=== PATIENT | male | born 1955 | race Hispanic/Latino ===

== ENCOUNTER 2017-09-10 22:27 | Emergency (ER) | payer OTHER ==
[2017-09-10] MEDS ORDERED: TORADOL ONE (23:08)
[2017-09-10] MEDS ORDERED: TORADOL IM ONE (23:12)
[2017-09-11 00:06] LABS: Basophils % (Auto) 0.6 % (0.0-1.8); Eosinophils % (Auto) 1.6 % (0.0-4.3); Hematocrit 43.4 % (35.5-45.6); Hemoglobin 14.9 gm/dl (11.8-15.2); Mean Corpuscular HGB Conc 34 % (32-34); Mean Corpuscular Hemoglobin 32 pg (28-32); Mean Corpuscular Volume 93 fl (84-94); Platelet Count 197 K/mm3 (140-440); Red Blood Count 4.68 M/mm3 (3.65-5.03); Red Cell Distribution Width 13.3 % (13.2-15.2); White Blood Count 14.7 K/mm3 (4.5-11.0)
[2017-09-11 00:21] LABS: Alanine Aminotransferase 17 units/L (7-56); Albumin 4.3 g/dL (3.9-5); Albumin/Globulin Ratio 1.7 %; Alkaline Phosphatase 73 units/L (35-129); Anion Gap 21 mmol/L; BUN/Creatinine Ratio 13; Blood Urea Nitrogen 13 mg/dL (9-20); Calcium 9.9 mg/dL (8.4-10.2); Carbon Dioxide 23 mmol/L (22-30); Glucose 201 mg/dL (75-100); Lipase 27 units/L (13-60); Potassium 4.3 mmol/L (3.6-5.0); Sodium 138 mmol/L (137-145); Total Protein 6.8 g/dL (6.3-8.2)
[2017-09-11 02:38] LABS: Mucus,Urine 1+ /HPF
[2017-09-11 02:41] LABS: Bilirubin,Urine Negative (Negative); Ketones,Urine Negative (Negative)
[2017-09-11 02:42] LABS: Blood,Urine Negative (Negative); Leukocyte Esterase,Urine Negative (Negative); Nitrite,Urine Negative (Negative); Urobilinogen,Urine < 2.0 mg/dL (<2.0)
--- NOTE | 2017-09-11 05:52 | Cat Scan Report ---
FINAL REPORT EXAM: CT ABDOMEN PELVIS W CON HISTORY: abd pain x 3 weeks, worsening RLQ GUARDED TECHNIQUE: Routine axial imaging was obtained of the abdomen and pelvis following the intravenous injection of 100 cc of Omnipaque 350. Delayed axial imaging was also obtained along with coronal and parasagittal reconstructions. FINDINGS: The lung bases are clear. Pleural fluid is not identified. The liver, gallbladder, pancreas, spleen, and adrenal glands appear normal. The kidneys enhance normally. There is calcification of the abdominal aorta. The vascular structures otherwise enhance normally. The stomach reveals diffuse mucosal thickening in the body and fundus of the stomach which is non specific. Whether the findings related to gastritis or even the possibility of neoplasia is uncertain. There is no evidence of gastric outlet obstruction. The bowel loops otherwise reveal uncomplicated diverticula in the sigmoid colon. In the hepatic flexure there is reticulation of the pericolonic fat. Underlying colitis cannot be excluded. There is no evidence of neoplasm. The appendix is not seen. There is no evidence of any inflammatory process in the right lower quadrant. There is a small umbilical hernia containing omental fat. In the pelvis the prostate gland is normal in size and contains calcifications. The bladder appears normal. Free fluid is not seen. There is no evidence of adenopathy. The skeletal structures reveal arthritic changes lumbar spine. IMPRESSION: Nonspecific mucosal thickening in the fundus and body of the stomach as described. Whether this is related to gastritis or the possibility neoplasia is uncertain. No evidence of gastric outlet obstruction. Pericolonic streaking of the mesentery around the hepatic flexure. The findings are suspicious for localized colitis. Uncomplicated sigmoid diverticulosis. The appendix is not identified. No definite inflammatory process in the right side of the pelvis. Very small umbilical hernia containing omental fat.
--- NOTE | 2017-09-11 07:13 | Emergency Department Report ---
HPI - General Chief Complaint: Abdominal Pain Time Seen by Provider: 09/11/17 07:02 - [facility] HPI: Room 5 The patient is a 62-year-old male presented with a chief complaint of abdominal pain. The patient states for the past 3 weeks she has had a dull intermittent periumbilical pain radiating to the right side. Patient states he would occasionally have a sharp pain in the same region. Since yesterday he has had very frequent sharp shooting pains in the periumbilical to right abdomen region. Patient denies any history of fever. Patient originally denied nausea vomiting or diarrhea but states since she's been the ED he's had 2 loose watery stools. The patient denies any recent antibiotics. Patient currently gives his pain a score of 4/10 Location: Abdomen Duration: 3 Weeks Quality: Dull and sharp Severity: 4/10 Modifying factors: [see above] Context: [see above] Mode of transportation: The patient drove himself to the emergency department and there are no visitors present ED Past Medical Hx - Past Medical History Previous Medical History?: Yes Hx Diabetes: Yes - Surgical History Past Surgical History?: No - Family History Family history: no significant - Social History Smoking Status: Current Every Day Smoker Substance Use Type: None - Medications Home Medications: Home Medications Medication Instructions Recorded Confirmed Last Taken Type Ciprofloxacin HCl [Ciprofloxacin 500 mg PO BID #20 tablet 09/11/17 Unknown Rx TAB] Diphenoxylate HCl/Atropine 2 each PO QID PRN #20 tablet 09/11/17 Unknown Rx [Lomotil 2.5-0.025 mg Tablet] HYDROcodone/APAP 5-325 [[place] 1 - 2 each PO Q6HR PRN #14 tablet 09/11/17 Unknown Rx 5/325] metroNIDAZOLE [Flagyl] 500 mg PO Q8HR #30 tablet 09/11/17 Unknown Rx ED Review of Systems ROS: Stated complaint: LOWER RIGHT ABD PAIN Other details as noted in HPI Constitutional: denies: fever Gastrointestinal: abdominal pain, diarrhea. denies: nausea, vomiting Physical Exam - Physical Exam Vital Signs: Vital Signs 09/10/17 09/11/17 23:05 05:11 Temperature 99.5 F Pulse Rate 82 Respiratory 20 16 Rate Blood Pressure 136/94 [Right] O2 Sat by Pulse 99 98 Oximetry Physical Exam: GENERAL: The patient is well-developed well-nourished male sleeping on stretcher not appearing to be in acute distress. Awakened easily HEENT: Normocephalic. Atraumatic. Extraocular motions are intact. Patient has moist mucous membranes. NECK: Supple. Trachea midline CHEST/LUNGS: Clear to auscultation. There is no respiratory distress noted. HEART/CARDIOVASCULAR: Regular. There is no tachycardia. There is no gallop rub or murmur. ABDOMEN: Abdomen is soft, with diffuse discomfort to palpation. There is no rebound or guarding. Patient has normal bowel sounds. There is no abdominal distention. SKIN: There is no rash. There is no edema. There is no diaphoresis. NEURO: The patient is awake, alert, and oriented. The patient is cooperative. The patient has normal speech MUSCULOSKELETAL: There is no evidence of acute injury. ED Course Vital Signs 09/10/17 09/11/17 23:05 05:11 Temperature 99.5 F Pulse Rate 82 Respiratory 20 16 Rate Blood Pressure 136/94 [Right] O2 Sat by Pulse 99 98 Oximetry ED Medical Decision Making - Lab Data Result diagrams: 09/10/17 23:27 09/10/17 23:27 Laboratory Tests 09/10/17 09/10/17 09/10/17 23:27 23:27 Unknown WBC 14.7 H RBC 4.68 Hgb 14.9 Hct 43.4 MCV 93 MCH 32 MCHC 34 RDW 13.3 Plt Count 197 Lymph % (Auto) 18.5 Yates % (Auto) 7.2 Eos % (Auto) 1.6 Baso % (Auto) 0.6 Lymph # 2.7 Yates # 1.1 H Eos # 0.2 Baso # 0.1 Seg Neutrophils % 72.1 H Seg Neutrophils # 10.6 H Sodium 138 Potassium 4.3 Chloride 98.0 Carbon Dioxide 23 Anion Gap 21 BUN 13 Creatinine 1.0 Estimated GFR > 60 BUN/Creatinine Ratio 13 Glucose 201 H Calcium 9.9 Total Bilirubin 0.30 AST 17 ALT 17 Alkaline Phosphatase 73 Total Protein 6.8 Albumin 4.3 Albumin/Globulin Ratio 1.7 Lipase 27 Urine Color Yellow Urine Turbidity Clear Urine pH 5.0 Ur Specific [place] 1.035 H Urine Protein 30 mg/dl Urine Glucose (UA) Trace Urine Ketones Negative Urine Blood Negative Urine Nitrite Negative Ur Reducing Substances Not Reportable Urine Bilirubin Negative Urine Ictotest Not Reportable Urine Urobilinogen < 2.0 Ur Leukocyte Esterase Negative Urine WBC (Auto) 2.0 Urine RBC (Auto) 1.0 Hyaline Casts 1 Urine Mucus 1+ - Radiology Data Radiology results: report reviewed (CT abdomen and pelvis), image reviewed (CT abdomen and pelvis) FINAL REPORT EXAM: CT ABDOMEN PELVIS W CON HISTORY: abd pain x 3 weeks, worsening RLQ GUARDED TECHNIQUE: Routine axial imaging was obtained of the abdomen and pelvis following the intravenous injection of 100 cc of Omnipaque 350. Delayed axial imaging was also obtained along with coronal and parasagittal reconstructions. FINDINGS: The lung bases are clear. Pleural fluid is not identified. The liver, gallbladder, pancreas, spleen, and adrenal glands appear normal. The kidneys enhance normally. There is calcification of the abdominal aorta. The vascular structures otherwise enhance normally. The stomach reveals diffuse mucosal thickening in the body and fundus of the stomach which is non specific. Whether the findings related to gastritis or even the possibility of neoplasia is uncertain. There is no evidence of gastric outlet obstruction. The bowel loops otherwise reveal uncomplicated diverticula in the sigmoid colon. In the hepatic flexure there is reticulation of the pericolonic fat. Underlying colitis cannot be excluded. There is no evidence of neoplasm. The appendix is not seen. There is no evidence of any inflammatory process in the right lower quadrant. There is a small umbilical hernia containing omental fat. In the pelvis the prostate gland is normal in size and contains calcifications. The bladder appears normal. Free fluid is not seen. There is no evidence of adenopathy. The skeletal structures reveal arthritic changes lumbar spine. IMPRESSION: Nonspecific mucosal thickening in the fundus and body of the stomach as described. Whether this is related to gastritis or the possibility neoplasia is uncertain. No evidence of gastric outlet obstruction. Pericolonic streaking of the mesentery around the hepatic flexure. The findings are suspicious for localized colitis. Uncomplicated sigmoid diverticulosis. The appendix is not identified. No definite inflammatory process in the right side of the pelvis. Very small umbilical hernia containing omental fat. Transcribed By: GALE Dictated By: ASHLEY GARZA MD Electronically Authenticated By: ASHLEY GARZA MD Signed Date/Time: 09/11/17148 DD/ 8 TD/TT: 09/11/17148 - Differential Diagnosis enteritis, diverticulitis, Critical care attestation.: If time is entered above; I have spent that time in minutes in the direct care of this critically ill patient, excluding procedure time. ED Disposition Clinical Impression: Acute colitis, Diarrhea, Acute abdominal pain Disposition: TO HOME OR SELFCARE Is pt being admited?: No Does the pt Need Aspirin: No Condition: Stable Instructions: Infectious Colitis (ED) Additional Instructions: Return to the emergency department immediately should you develop worsening symptoms, fever, inability to tolerate food or liquid or any other concerns. Prescriptions: Ciprofloxacin HCl [Ciprofloxacin TAB] 500 mg PO BID #20 tablet Diphenoxylate HCl/Atropine [Lomotil 2.5-0.025 mg Tablet] 2 each PO QID PRN #20 tablet PRN Reason: Diarrhea HYDROcodone/APAP 5-325 [[place] 5/325] 1 - 2 each PO Q6HR PRN #14 tablet PRN Reason: Pain metroNIDAZOLE [Flagyl] 500 mg PO Q8HR #30 tablet Referrals: PRIMARY CARE, [Primary Care Provider] - 3-5 Days YANDEL CALHOUN MD [Staff Physician] - 3-5 Days (Dr. Calhoun is a cooler tender. Please follow up with him for further evaluation) Time of Disposition: 07:16
[2017-09-11 07:39] VITALS: BP 136/94
== END 2017-09-11 07:38 | disposition home or self-care (01) ==
LOC: ED 22:27
DX: K52.9 Noninfective gastroenteritis and colitis, unspecified (principal); E11.9 Type 2 diabetes mellitus without complications; F17.200 Nicotine dependence, unspecified, uncomplicated
CPT/HCPCS: 36415; 74177; 80053; 81001; 83690; 85025; 96372; 99284; J1885; Q9967